=== PATIENT | female | born 1975 | race Caucasian/White ===

== ENCOUNTER 2020-09-12 12:00 | Emergency (ER) | payer MEDICAID, SELFPAY ==
[2020-09-12 13:25] VITALS: BP 125/83; PULSE 82; RESP 20; TEMP 38; O2SAT 95; BMI 41.1
--- NOTE | 2020-09-12 14:21 | XRR_ITS ---
PROCEDURE INFORMATION: Exam: XR Chest Exam date and time: 09/12/2020 2:21 PM Age: 45 years old Clinical indication: Dyspnea and shortness of breath; Additional info: Covid/dyspnea TECHNIQUE: Imaging protocol: XR of the chest. Views: 1 view. COMPARISON: No relevant prior studies available. FINDINGS: Lungs: Unremarkable. No consolidation. Pleural spaces: Unremarkable. No pleural effusion. No pneumothorax. Heart/Mediastinum: Unremarkable. No cardiomegaly. Bones/joints: Unremarkable. XR/XR chest 1V portable [id number] IMPRESSION: No acute findings.
--- NOTE | 2020-09-12 14:25 | ECG_ITS ---
[facility] Test Date: 2020-09-12 Pat Name: Ann Chirinos Department: Room: Gender: Female Deck Mate: : 1975 Requested By: Diogo Chan Order Number: [id number] Rosa MD: Karen Paiz M.D. Measurements Intervals Abrams Rate: 82 P: 20 MD: 145 QRS: 53 QRSD: 85 T: 18 QT: 350 QTc: 410 Interpretive Statements SINUS RHYTHM No previous ECG available for comparison Electronically Signed On 09-12-2020 16:40:35 CDT by Karen Paiz M.D. [id number]
--- NOTE | 2020-09-12 14:29 | W.ED.SOB ---
HPI - SOB/Dyspnea General: Chief Complaint: Shortness of Breath/Dyspnea Stated Complaint: COVD +, SOB Time Seen by Provider: 09/12/20 14:11 History of Present Illness: HPI Narrative: The patient is a 45-year-old female who comes to the ER complaining of increased shortness of breath. She tested positive for Covid and has been having symptoms since last Friday making this her seventh day of symptoms. She has been taking Tylenol at home most recently 3 hours ago she took 1 pill. Over the last weekend she took an aspirin as well and was told not to. She says she woke up with a deep congestion and continues to have severe fatigue, muscle aches, and is not eating or drinking well. She has not gotten steroid, antibiotic, nor the antibiotic infusion. She was scheduled to have the antibiotic infusion Friday but she could not wake up early enough to go to the appointment. She says her cough has become mildly productive. MD elicited complaint: shortness of breath Context: recent illness Severity: moderate Exacerbating factors: exertion and coughing Associated symptoms: Reports cough, fever(s) and nausea; Deny chest pain, dizziness, extremity pain, orthopnea, palpitations, polyuria or vomiting Review of Systems General: Reports: 10 or more systems reviewed and unremarkable except in HPI and below Const: Reports: fever(s), chills, body aches, change in appetite and fatigue Eyes: Denies: change in vision, blurry vision or eye redness ENMT: Denies: throat pain, swelling of lips/tongue, ear or mastoid pain or nasal congestion Card: Denies: chest pain, palpitations, irregular heart rhythm, edema, dyspnea on exertion or orthopnea Resp: Reports: dyspnea and productive cough GI: Reports: nausea; Denies: vomiting : Denies: flank pain, difficulty voiding, urinary frequency or urinary urgency Musc: Denies: neck pain, back pain, extremity pain, joint pain, joint redness, limited range of motion or muscle weakness Skin/Breast: Denies: rash, pruritus, erythema, skin pain or skin tenderness Neuro: Denies: headache(s), numbness in extremities, weakness in extremities, sensory changes, difficulty walking, dizziness, confusion or Slurred speech present Psych: Denies: anxiety or depression Endo: Denies: polyuria All/Imm: Denies: urticaria, throat swelling or tongue swelling Physical Exam Const: COMMON NORMALS: no acute distress, average body habitus, patient oriented x3, no limitations, healthy appearing, alert and well nourished GENERAL APPEARANCE: cooperative, comfortable, well kempt and well developed ORIENTATION/CONSCIOUSNESS: Yes awake, Yes oriented to person, Yes oriented to place and Yes oriented to time HENMT: COMMON NORMALS: normocephalic, external ears normal and Normal external nose present HEAD & SCALP: normal to inspection and normocephalic NOSE: Normal external nose present EXTERNAL EAR: Yes external ears normal MOUTH: Normal oral and palatal mucosa present THROAT: posterior oropharynx normal Eye: COMMON NORMALS: Equal, round and reactive pupils present and EOMs intact bilaterally GENERAL EYE: appearance normal, both eyes and all related structures PUPIL: Yes Equal, round and reactive pupils present Neck/C-Spine: COMMON NORMALS: full ROM, no lymphadenopathy, no meningeal signs and no JVD GENERAL: Yes normal visual inspection Lymph: LYMPHATIC: no lymphadenopathy noted Chest: COMMONS NORMALS: normal inspection of the chest and normal palpation of entire chest wall Resp: COMMON NORMALS: normal respiratory effort, No retractions, No use of accessory muscles, clear to auscultation bilaterally and percussion normal EFFORT & INSPECTION: Yes able to speak in complete sentences AUSCULTATION: clear to auscultation bilaterally PERCUSSION: percussion normal Cardio: COMMON NORMALS: no JVD, regular rate, regular rhythm, S1 normal heart sound present, S2 normal heart sound present and Peripheral pulses 2+ throughout RATE: regular rate RHYTHM: regular rhythm HEART SOUNDS: S1 normal heart sound present and S2 normal heart sound present PERIPHERAL PULSES: Peripheral pulses 2+ throughout GI: COMMON NORMALS: Normal to inspection, nondistended, normoactive bowel sounds present, Soft to palpation, non-tender and no masses INSPECTION: Yes normal to inspection PALPATION: Yes Soft to palpation : COMMON NORMALS: Yes no CVA tenderness BLADDER/KIDNEY EXAM: Yes no CVA tenderness Back/Pelvis: COMMON NORMALS: no CVA tenderness, thoracic and lumbar spine normal to inspection, no thoracic nor lumbar tenderness and thoraco-lumbar ROM normal Extremity: COMMON NORMALS: normal to inspection, full ROM, capillary refill normal, no joint enlargement and no pedal edema GENERAL: Yes normal exam except as noted Neuro: COMMON NORMALS: patient oriented x3, CN's II-XII intact bilaterally, moves all extremities, no focal motor deficits, no sensory deficits noted and gait normal SENSORIUM/ORIENTATION: Yes alert, Yes oriented to person, Yes oriented to place and Yes oriented to time MENINGEAL SIGNS: Yes no meningeal signs Psych: COMMON NORMALS: mental status grossly normal, Normal thought process present, cooperative, normal affect and speech normal APPEARANCE: Yes well kempt ATTITUDE: Yes calm SPEECH: Yes normal speech THOUGHT PROCESS: Normal thought process present Skin: COMMON NORMALS: no rashes or lesions noted GENERAL SKIN EXAM: no rashes or lesions noted Course Vital Signs: Vital signs: Vital Signs Temperature 98.7 F 09/12/20 18:19 Pulse Rate 87 09/12/20 18:19 Respiratory Rate 18 09/12/20 18:19 Blood Pressure 134/88 09/12/20 18:19 Pulse Oximetry 98 09/12/20 18:19 MDM - SOB/Dyspnea MDM Narrative: Medical decision making narrative: The patient is Covid positive complaining of congestion. She was given steroids, antibiotics, and albuterol here as well as on discharge. Her fever was treated with Tylenol. She feels improved and ready for discharge. Unable to schedule outpatient antibiotic infusion because reports are her symptoms have been longer than 10 days. She missed her appointment last Friday and they said they can schedule it because she is over 10 days. Primary care physician in a couple days. ER with worsening symptoms at any time. Drink lots of fluids. Tylenol for fever. Lab Data: Labs: Lab Results 09/12/20 09/12/20 09/12/20 Range/Units 15:09 15:09 15:09 WBC 6.0 (4.0-10.0) 10^3/ uL RBC 5.22 (4.1-5.3) 10^6/u L Hgb 15.6 H (11.5-15.3) g/dL Hct 47.6 H (37.0-47.0) % MCV 91.2 (81-99) fL MCH 29.9 (28.0-34.0) pg MCHC 32.8 (30.0-36.0) g/dL RDW 14.0 (12.1-15.1) % Plt Count 154 (130-400) 10^3/c mm MPV 11.3 H (7.4-10.4) fL Neut % (Auto) 70.4 % Lymph % (Auto) 21.9 % [place] % (Auto) 6.8 % Eos % (Auto) 0.3 % Baso % (Auto) 0.3 % Neut # (Auto) 4.23 (1.8-7.7) 10^3/u L Lymph # (Auto) 1.3 (0.8-4.8) 10^3/u L [place] # (Auto) 0.4 (0.2-0.9) 10^3/u L Eos # (Auto) 0.0 (0.0-0.8) 10^3/u L Baso # (Auto) 0.0 (0.0-0.1) 10^3/u L Nucleated RBC % (a uto) 0 % Nucleated RBCs # 0.0 /100WBC Sodium 139 (136-145) mmol/L Potassium 4.3 (3.5-5.1) mmol/L Chloride 101 (98-107) mmol/L Carbon Dioxide 27 (22-29) mmol/L Anion Gap 15.3 (5-19) BUN 8 (6-20) mg/dL Creatinine 0.9 (0.5-0.9) mg/dL GFR Calculation 67.7 L (90-130) mL/min Glucose 109 (65-115) mg/dL Calculated Osmolal ity 287 (285-295) mOsm/k g Lactic Acid (0.5-2.2) mmol/L Calcium 8.3 L (8.5-10.5) mg/dL Total Bilirubin 0.2 (0.15-1.2) mg/dL AST 126 H (0-32) U/L ALT 59 H (0-33) U/L Alkaline Phosphata se 72 (35-105) IU/L Troponin T Baselin e (0-10) ng/L Total Protein 6.6 (6.6-8.7) g/dL Albumin 4.0 (3.5-5.2) g/dL Globulin 2.6 (1.3-4.6) g/dL HCG, Qual Negative (Negative) 09/12/20 09/12/20 Range/Units 15:09 15:26 WBC (4.0-10.0) 10^3/ uL RBC (4.1-5.3) 10^6/u L Hgb (11.5-15.3) g/dL Hct (37.0-47.0) % MCV (81-99) fL MCH (28.0-34.0) pg MCHC (30.0-36.0) g/dL RDW (12.1-15.1) % Plt Count (130-400) 10^3/c mm MPV (7.4-10.4) fL Neut % (Auto) % Lymph % (Auto) % [place] % (Auto) % Eos % (Auto) % Baso % (Auto) % Neut # (Auto) (1.8-7.7) 10^3/u L Lymph # (Auto) (0.8-4.8) 10^3/u L [place] # (Auto) (0.2-0.9) 10^3/u L Eos # (Auto) (0.0-0.8) 10^3/u L Baso # (Auto) (0.0-0.1) 10^3/u L Nucleated RBC % (a uto) % Nucleated RBCs # /100WBC Sodium (136-145) mmol/L Potassium (3.5-5.1) mmol/L Chloride (98-107) mmol/L Carbon Dioxide (22-29) mmol/L Anion Gap (5-19) BUN (6-20) mg/dL Creatinine (0.5-0.9) mg/dL GFR Calculation (90-130) mL/min Glucose (65-115) mg/dL Calculated Osmolal ity (285-295) mOsm/k g Lactic Acid 1.5 (0.5-2.2) mmol/L Calcium (8.5-10.5) mg/dL Total Bilirubin (0.15-1.2) mg/dL AST (0-32) U/L ALT (0-33) U/L Alkaline Phosphata se (35-105) IU/L Troponin T Baselin e 6 (0-10) ng/L Total Protein (6.6-8.7) g/dL Albumin (3.5-5.2) g/dL Globulin (1.3-4.6) g/dL HCG, Qual (Negative) Discharge Plan Discharge Patient Disposition: Home Clinical Impression: COVID-19 Condition: Stable Prescriptions: New Medrol (Albert) 4 mg tablets,dose pack See Rx Instructions .ROUTE .COMPLEX Qty: 21 RF: 0 albuterol sulfate 90 mcg/actuation HFA aerosol inhaler 2 inh inhalation Q6H PRN (Reason: shortness of breath or wheezing) 30 Days RF: 0 levofloxacin 750 mg tablet 750 mg PO DAILY 7 Days RF: 0 No Action Tylenol 325 mg Tablet 325 mg PO QID PRN (Reason: PAIN/FEVER) RF: 0 Motrin 100 mg Tablet 200 mg PO Q6H PRN (Reason: PAIN/FEVER) RF: 0 lisinopril 5 mg tablet 5 mg PO DAILY RF: 0 Discharge Orders: Discharge ED (Routine); Ordered 09/12/20 Ordered By: Diogo Chan Referrals: Mary Major MD [Primary Care Provider] - Discharge Diet: Advance as tolerated Discharge Activity: Resume usual activity Patient Instructions: Opioid Safety Activity Restrictions/Additional Instructions: You have Covid. Please continue to drink lots of fluids and take Tylenol for fevers. Please take the steroid pack, antibiotic, and use albuterol to help you breathe. Return to the ER at anytime with worsening symptoms otherwise follow-up with your primary care physician in a couple days. Coding Level of Care Code ED Sales Representative Consultant for Regla Quinonez Exam Comprehensive
[2020-09-12] MEDS: ondansetron 2 mg/ML SDV 2 mL 4 MG IVP (15:00)
[2020-09-12] MEDS: acetaminophen 325 mg Tablet 650 MG PO (15:00)
[2020-09-12] MEDS: sodium chloride 0.9% 1,000 ML 999 ML IV (15:00)
[2020-09-12] MEDS: dexamethasone 4 mg/mL INJ 6 MG IVP (15:01)
[2020-09-12 15:08] VITALS: BP 119/89; PULSE 77; RESP 18; O2SAT 98
[2020-09-12 15:18] LABS: Basophils % 0.3 %; Eosinophils % 0.3 %; Hematocrit 47.6 % (37.0-47.0); Hemoglobin 15.6 g/dL (11.5-15.3); Lymphocytes # 1.3 10^3/uL (0.8-4.8); Lymphocytes % 21.9 %; Mean Corpuscular HGB Conc 32.8 g/dL (30.0-36.0); Mean Corpuscular Hemoglobin 29.9 pg (28.0-34.0); Mean Corpuscular Volume 91.2 fL (81-99); Mean Platelet Volume 11.3 fL (7.4-10.4); Monocytes # 0.4 10^3/uL (0.2-0.9); Monocytes % 6.8 %; Neutrophils # 4.23 10^3/uL (1.8-7.7); Neutrophils % 70.4 %; Nucleated Red Blood Cells % 0 %; Platelet Count 154 10^3/cmm (130-400); Red Blood Count 5.22 10^6/uL (4.1-5.3)
[2020-09-12 15:26] LABS: HCG, Serum Qual Negative (Negative)
[2020-09-12 15:37] LABS: Troponin(5th) Baseline 6 ng/L (0-10)
[2020-09-12 15:38] LABS: Alanine Aminotransferase 59 U/L (0-33); Alkaline Phosphatase 72 IU/L (35-105); Anion Gap 15.3 (5-19); Aspartate Amino Transferase 126 U/L (0-32); Blood Urea Nitrogen 8 mg/dL (6-20); Calcium 8.3 mg/dL (8.5-10.5); Carbon Dioxide 27 mmol/L (22-29); Chloride 101 mmol/L (98-107); Globulin 2.6 g/dL (1.3-4.6); Glomerular Filtration Rate 67.7 mL/min (90-130); Glucose 109 mg/dL (65-115); Osmolality Calculated 287 mOsm/kg (285-295); Potassium 4.3 mmol/L (3.5-5.1); Sodium 139 mmol/L (136-145); Total Bilirubin 0.2 mg/dL (0.15-1.2); Total Protein 6.6 g/dL (6.6-8.7)
[2020-09-12 16:34] VITALS: BP 127/75; PULSE 79; RESP 18; O2SAT 94
[2020-09-12 17:15] LABS: Lactic Sepsis W/Reflex 1.5 mmol/L (0.5-2.2)
[2020-09-12] MEDS: levoFLOXacin 750 mg Tablet PO (18:14)
[2020-09-12 18:19] VITALS: BP 134/88; PULSE 87; RESP 18; TEMP 37.1; O2SAT 98
[2020-09-12 18:34] VITALS: BP 131/83; PULSE 78; RESP 18; O2SAT 97
== END 2020-09-12 18:34 | disposition home or self-care (01) ==
PROVIDERS: Emergency Provider Family Medicine; PCP Family Medicine
DX: U07.1 COVID-19 (principal)
CPT/HCPCS: 71045; 80053; 83605; 84484; 84703; 85025; 93005; 96361; 96374; 96375; 99284; J1100; J2405; J3535; J7030

== ENCOUNTER → 2022-05-28 17:15 | Outpatient (BNVA) | payer MEDICAID, SELFPAY | PROVIDERS: PCP Nurse Practitioner Family; Visit Provider Nurse Practitioner Family | DX: J02.9 Acute pharyngitis, unspecified (principal) | CPT/HCPCS: 87071; 87880 ==